=== PATIENT | female | born 1995 | race Two or more races ===

== ENCOUNTER 2018-04-14 21:40 | Emergency (ER) | payer SELFPAY ==
[~2018-04-14] VITALS: Ht 170.2 cm; Wt 88.5 kg
--- NOTE | 2018-04-14 21:53 | PHYS DOC ---
Adult General Chief Complaint Chief Complaint: OTHER COMPLAINTS HPI HPI Patient is a 23 year old female who presents with skin infection on the left posterior knee that began 3 days ago after wearing long boots that were cutting into her skin. Review of Systems Review of Systems Constitutional: Denies fever or chills [] Musculoskeletal: Denies back pain or joint pain [] Integument: Reports infection behind the left knee Neurologic: Denies headache, focal weakness or sensory changes [] All other systems were reviewed and found to be within normal limits, except as documented in this note. Current Medications Current Medications Current Medications Medications (Trade) Dose Ordered Sig/Heath Start Time Stop Time Status Last Admin Dose Admin Diphtheria/ Tetanus/Acell Pertussis (Boostrix) 0.5 ml ONCE ONCE 04/14/18 22:00 04/14/18 22:01 Allergies Allergies Allergies Coded Allergies Type Severity Reaction Last Updated Verified No Known Drug Allergies 04/14/18 No Physical Exam Physical Exam Constitutional: Well developed, well nourished, no acute distress, non-toxic appearance. [] Skin: Left anterior knee with no obvious lesions. Behind the left knee patient has a laceration approximately 2 cm long with surrounding blistering and erythema consistent with cellulitis infection. Full range of motion to the left knee. +2 left pedal pulse. Cap refill less than 2 seconds the left lower extremity. Back: No tenderness, no CVA tenderness. [] Extremities: No tenderness, no cyanosis, no clubbing, ROM intact, no edema. [] Neurologic: Alert and oriented X 3, normal motor function, normal sensory function, no focal deficits noted. [] Psychologic: Affect normal, judgement normal, mood normal. [] Current Patient Data Vital Signs Vital Signs Date Time Temp Pulse Resp B/P (MAP) Pulse Ox O2 Delivery O2 Flow Rate FiO2 04/14/18 21:54 98.6 95 16 136/63 (87) 97 Room Air 98.6 EKG EKG [] Radiology/Procedures Radiology/Procedures [] Course & Med Decision Making Course & Med Decision Making Pertinent Labs and Imaging studies reviewed. (See chart for details) Patient has cellulitis behind her left knee. Anterior knee is not affected. Infection appears superficial. Boostrix updated. Discharged with Bactroban ointment and Bactrim. Follow-up with PCP in 1-2 weeks as needed. Provided return precautions. Dragon Disclaimer Dragon Disclaimer This electronic medical record was generated, in whole or in part, using a voice recognition dictation system. Departure Departure Impression: Primary Impression: Cellulitis of lower leg Disposition: 01 HOME, SELF-CARE Condition: STABLE Referrals: NO PCP (PCP) follow up with your doctor in one to two weeks Patient Instructions: Cellulitis, [id number] Additional Instructions: You were evaluated in the emergency room for skin infection behind the left knee. Use the prescribed medications as ordered. Ensure you complete your oral antibiotics. Do not wear long boots until this infection is completely cleared out. Please consider padding the top of the boot when you resume wearing it. Follow-up with your own doctor in 1-2 weeks. Scripts Sulfamethoxazole/Trimethoprim (BACTRIM DS TABLET) 1 Each Tablet 1 TAB PO BID, #20 TAB Prov: SOO LWORY APRN 04/14/18 Mupirocin Calcium (BACTROBAN CREAM) 15 Gm Cream..g. 1 MINA TP TID, #30 GM Prov: SOO LOWRY APRN 04/14/18 SOO LOWRY APRN Apr 14, 2018 21:53
[2018-04-14 21:54] VITALS: BP 136/63
[2018-04-14] MEDS ORDERED: DIPHTH,PERTUSS(ACELL),TET TOX 0.5 ML DISP.SYRIN. VAX IM ONE (22:00)
[2018-04-14] MEDS ORDERED: SULF1TAB24 PO (22:04)
[2018-04-14] MEDS ORDERED: MUPI15CR TP (22:04)
== END 2018-04-14 22:11 | disposition home or self-care (01) ==
LOC: ER 21:40
DX: L03.116 Cellulitis of left lower limb (principal)
CPT/HCPCS: 90471; 90715; 99283